=== PATIENT | male | born 1985 | race Caucasian/White ===

== ENCOUNTER 2018-09-10 21:37 | Emergency (ER) | payer MEDICAID ==
[~2018-09-10] VITALS: Ht 182.9 cm; Wt 144.1 kg
[2018-09-10] MEDS ORDERED: GLUCAGON 1 MG ONE (22:26)
[2018-09-10] MEDS ORDERED: GLUCAGON 1 MG IVPush PRN (22:30)
--- NOTE | 2018-09-10 23:44 | NUR ---
received report from MARINO Burdick. GI at bedside for patient's evaluation. consent signed for EGD. awaiting endo team.
[2018-09-10] MEDS ORDERED: PROPOFOL 10 MG/ML, 20ML ONE (23:49)
[2018-09-11] MEDS ORDERED: SODIUM CHLORIDE 0.9% 1,000ML IVBOLUS ONE
--- NOTE | 2018-09-11 00:25 | NUR ---
Endo team at bedside preparing equipments.
[2018-09-11] MEDS ORDERED: ONDANSETRON 2MG/ML, 2ML IVPush ONE (00:30)
--- NOTE | 2018-09-11 00:40 | NUR ---
ERP at bedside to educate patient about sedation.
[2018-09-11] MEDS ORDERED: PROPOFOL 10 MG/ML, 20ML ONE (00:42)
--- NOTE | 2018-09-11 00:52 | NUR ---
procedure ended. patient move all extremities and responsive to verbal stimuli. VSS
--- NOTE | 2018-09-11 01:00 | NUR ---
patient awake but drowsy. alert and oriented.
[2018-09-11] MEDS ORDERED: PROPOFOL 10 MG/ML, 20ML IVPush ONE ×2 (01:30)
--- NOTE | 2018-09-11 01:31 | NUR ---
patient more awake. alert and oriented. VSS
[2018-09-11] MEDS ORDERED: ONDANSETRON 2MG/ML, 2ML ONE (01:32)
--- NOTE | 2018-09-11 01:43 | NUR ---
patient able to drink a cup of water without vomiting.
[2018-09-11 02:22] VITALS: BP 123/81
--- NOTE | 2018-09-11 02:22 | NUR ---
re-evaluation done. patient discharged with prescription and instruction. verbalized understanding.
== END 2018-09-11 02:24 | disposition home or self-care (01) ==
LOC: EDBD 21:37 → ED 23:52
DX: T18.128A Food in esophagus causing other injury, initial encounter (principal); K21.9 Gastro-esophageal reflux disease without esophagitis; F17.210 Nicotine dependence, cigarettes, uncomplicated; X58.XXXA Exposure to other specified factors, initial encounter; Y93.89 Activity, other specified; Y92.89 Other specified places as the place of occurrence of the external cause; Y99.8 Other external cause status
CPT/HCPCS: 43247; 71046; 93005; 96361; 96374; 96375; 99285; J1610; J2405; J2704; J7030